=== PATIENT | female | born 1990 ===

== ENCOUNTER 2023-06-23 14:11 | Outpatient (CLI) | payer OTHER ==
--- NOTE | 2023-06-23 16:22 | MRI Report ---
PROCEDURE: LUMBAR SPINE WO INDICATIONS: LOW BACK PAIN TECHNIQUE: Noncontrast sagittal T1 spin echo and T2 fast echo, sagittal STIR, axial T1 and T2 fast spin echo thr ough the lumbar spine. In cases with scoliosis, additional coronal T2 fast spin echo may be performe d. COMPARISON: None. FINDINGS: Image quality: Excellent. Alignment and Curvature: Straightening of the normal lumbar lordosis.. Bone Marrow: Marrow is of normal overall signal. No acute vertebral body compression fractures. Spinal Cord: Conus medullaris terminates at the L1-L2 level. Visualized cord demonstrates normal si gnal and size. Paraspinous Soft Tissues: No paravertebral masses. T12-L1: Normal in appearance. L1-L2: Normal in appearance. L2-L3: Normal in appearance. L3-L4: Normal in appearance. L4-L5: Disc desiccation and mild height loss with a central disc protrusion. There is mild narrowin g of the right lateral recess with abutment of the descending right L5 nerve root. No central canal s tenosis. No neuroforaminal stenosis. L5-S1: Disc desiccation. Minimal posterior disc bulge. Facet arthropathy. No central canal or neuro foraminal stenosis. IMPRESSION: 1.Degenerative disc disease of the lower lumbar spine. There is a central disc protrusion at L4-L5 re sulting in mild narrowing of the right lateral recess with abutment of the descending right L5 nerve root. 2.No significant central canal or neuroforaminal stenosis throughout. Reviewed by: Leighton Simpson MD on 06/23/2023 4:21 PM PDT Approved by: Leighton Simpson MD on 06/23/2023 4:21 PM PDT Station ID: [id number]
== END 2023-06-23 14:12 | disposition home or self-care (01) ==
LOC: DI 14:11
PROVIDERS: ATTEND Family Medicine
DX: M51.36 Other intervertebral disc degeneration, lumbar region (principal); M51.26 Other intervertebral disc displacement, lumbar region